=== PATIENT | female | born 1985 | race Caucasian/White ===

== ENCOUNTER 2017-06-29 08:29 | Emergency (ER) | payer OTHER | END 2017-06-29 10:48 | disposition home or self-care (01) | LOC: M ED 10:48 | DX: S39.002A Unspecified injury of muscle, fascia and tendon of lower back, initial encounter (principal); X50.0XXA Overexertion from strenuous movement or load, initial encounter; Y92.89 Other specified places as the place of occurrence of the external cause; M41.9 Scoliosis, unspecified | CPT/HCPCS: 99281 ==